=== PATIENT | male | born 1960 | race Caucasian/White ===

== ENCOUNTER 2021-03-19 18:15 | Emergency (ER) | payer OTHER ==
[~2021-03-19] VITALS: Ht 170.2 cm; Wt 70.5 kg
[2021-03-19] MEDS ORDERED: TAMS-13 PO (18:26)
[2021-03-19 20:23] LABS: APPEARANCE,URINE CLEAR (CLEAR); BILIRUBIN,URINE NEGATIVE (NEGATIVE); GLUCOSE, URINE (UA) NEGATIVE (NEGATIVE); KETONES,URINE NEGATIVE (NEGATIVE); LEUKOCYTE ESTERASE ,URINE NEGATIVE (NEGATIVE); NITRATE,URINE NEGATIVE (NEGATIVE); OCCULT BLOOD,URINE SMALL (NEGATIVE); PROTEIN,URINE NEGATIVE (NEGATIVE); UROBILINOGEN,URINE 0.2 mg/dL (<=1.0)
[2021-03-19 20:33] LABS: BACTERIA,URINE Rare /HPF (None Seen); SQUAMOUS EPITHELIAL CELL,UR Rare /LPF (None Seen); WBC,URINE 0-2 /HPF (0-5)
[2021-03-19 20:50] VITALS: BP 147/95
== END 2021-03-19 21:17 | disposition home or self-care (01) ==
LOC: EMS 18:15
DX: R33.9 Retention of urine, unspecified (principal)
CPT/HCPCS: 51702; 81001; 99284; Z7502

== ENCOUNTER 2021-03-24 16:31 | Emergency (ER) | payer OTHER ==
[~2021-03-24] VITALS: Ht 167.6 cm; Wt 68.2 kg
[~2021-03-24 16:31] MED LIST: TAMS-13 PO
[2021-03-24] MEDS ORDERED: LORA10TA7 PO (17:00)
[2021-03-24] MEDS ORDERED: GABA-1181 PO (17:00)
[2021-03-24 18:45] VITALS: BP 151/79
== END 2021-03-24 19:20 | disposition home or self-care (01) ==
LOC: EMS 16:33
DX: T83.091A Other mechanical complication of indwelling urethral catheter, initial encounter (principal); Z88.6 Allergy status to analgesic agent; Z88.0 Allergy status to penicillin; Z88.8 Allergy status to other drugs, medicaments and biological substances; Y84.6 Urinary catheterization as the cause of abnormal reaction of the patient, or of later complication, without mention of misadventure at the time of the procedure
CPT/HCPCS: 99281; 99283

== ENCOUNTER 2021-03-25 13:27 | Emergency (ER) | payer OTHER ==
[~2021-03-25] VITALS: Ht 170.2 cm; Wt 70.5 kg
[~2021-03-25 13:27] MED LIST changes: +GABA-1181 PO; +LORA10TA7 PO
[2021-03-25 14:44] VITALS: BP 121/78
== END 2021-03-25 14:57 | disposition home or self-care (01) ==
LOC: EMS 13:34
DX: Z46.6 Encounter for fitting and adjustment of urinary device (principal); Z88.6 Allergy status to analgesic agent; Z88.0 Allergy status to penicillin; Z88.8 Allergy status to other drugs, medicaments and biological substances
CPT/HCPCS: 99281; Z7502

== ENCOUNTER 2023-08-30 10:44 | Emergency (ER) | payer MEDICARE, OTHER ==
[~2023-08-30] VITALS: Ht 170.2 cm; Wt 77.3 kg
[~2023-08-30 10:44] MED LIST changes: -TAMS-13 PO; +TAMS0.4C34 PO
[2023-08-30] MEDS ORDERED: TETR15DR24 OU (10:51)
[2023-08-30] MEDS ORDERED: MECLIZINE HCL 25 MG TABLET PO ONE (11:30)
[2023-08-30] MEDS ORDERED: DORZ10DR10 OU (11:51)
[2023-08-30] MEDS ORDERED: LATA2.5D14 OU (11:51)
[2023-08-30 12:50] VITALS: TEMP 98.2
[2023-08-30] MEDS ORDERED: MECL-226 PO (13:20)
[2023-08-30 14:03] VITALS: BP 142/90; PULSE 68; RESP 16
== END 2023-08-30 14:50 | disposition home or self-care (01) ==
LOC: EMS 10:55
DX: R42 Dizziness and giddiness (principal); N40.0 Benign prostatic hyperplasia without lower urinary tract symptoms; F17.210 Nicotine dependence, cigarettes, uncomplicated; Z89.611 Acquired absence of right leg above knee; Z88.0 Allergy status to penicillin; Z88.6 Allergy status to analgesic agent
CPT/HCPCS: 70450; 99284